=== PATIENT | male | born 1970 | race Caucasian/White ===

== ENCOUNTER 2019-12-13 08:02 | Emergency (ER) | payer BC ==
[~2019-12-13] VITALS: Ht 177.8 cm; Wt 99.8 kg
--- NOTE | 2019-12-13 08:40 | NUR ---
patient came in to the er c/o r knee pain x 1 week. on room air, breathing evenly and unlabored. connected to the monitor and pulse ox. kept comfortable, will continue to monitor accordingly.
--- NOTE | 2019-12-13 08:41 | NUR ---
[facility] at bedside for x-ray.
[2019-12-13 08:50] LABS: BASOPHILS # (AUTO) 0.1 /CMM (0.0-0.2); BASOPHILS % (AUTO) 0.7 % (0.0-2.0); EOSINOPHILS % (AUTO) 1.7 % (0.0-6.0); HEMATOCRIT 44 % (39-51); HEMOGLOBIN 14.7 g/dL (13.5-17.5); LYMPHOCYTES # (AUTO) 1.5 /CMM (0.8-4.8); LYMPHOCYTES % (AUTO) 10.1 % (20.0-44.0); MEAN CORPUSCULAR HGB CONC 34 g/dl (31.0-36.0); MEAN CORPUSCULAR VOLUME 90 fL (80-96); MONOCYTES # (AUTO) 1.1 /CMM (0.1-1.30); MONOCYTES % (AUTO) 7.2 % (2.0-12.0); NEUTROPHILS # (AUTO) 12.3 /CMM (1.8-8.9); NEUTROPHILS % (AUTO) 80.3 % (43.0-81.0); PLATELET COUNT (AUTO) 385 /CMM (150-450); RED BLOOD CELL COUNT(AUTO) 4.82 MIL/uL (4.5-6.0); WHITE BLOOD COUNT (AUTO) 15.3 K/uL (4.3-11.0)
[2019-12-13 09:00] LABS: CALCIUM, SERUM 9.3 mg/dL (8.5-10.1); POTASSIUM 3.9 mmol/L (3.5-5.1)
[2019-12-13] MEDS ORDERED: LIDOCAINE HCL/MPF 1% 30 ML VIAL IJ ONE (09:22)
--- NOTE | 2019-12-13 10:06 | NUR ---
CALLED [facility] FOR OTHRO CONSULT.
[2019-12-13] MEDS ORDERED: OLME20TA13 PO (10:12)
[2019-12-13] MEDS ORDERED: VENL37.55 PO (10:12)
--- NOTE | 2019-12-13 10:21 | NUR ---
CALLED [facility] SECOND TIME FOR CONSULT.
--- NOTE | 2019-12-13 10:50 | NUR ---
CALLED [facility] A THIRD TIME FOR CONSULT.
[2019-12-13] MEDS ORDERED: KETOROLAC TROMETHAMINE INJ 30 MG/ML VIAL IV ONE (11:00)
[2019-12-13] MEDS ORDERED: HYDROCODONE/APAP 10/325MG 1 EA TABLET PO ONE (11:00)
[2019-12-13] MEDS ORDERED: KETOROLAC TROMETHAMINE INJ 30 MG/ML VIAL ONE (11:09)
[2019-12-13] MEDS ORDERED: HYDROCODONE/APAP 10/325MG 1 EA TABLET ONE (11:09)
--- NOTE | 2019-12-13 11:20 | NUR ---
CALLED [facility] 4TH TIME FOR ORTHO CONSULT. BOTH PA AND DOC IN SURGERY.
[2019-12-13 12:13] VITALS: BP 130/71
--- NOTE | 2019-12-13 12:13 | NUR ---
Patient discharged to home in stable condition. Written and verbal after care instructions given. Patient verbalizes understanding of instruction.
== END 2019-12-13 12:13 | disposition home or self-care (01) ==
LOC: ER 08:07 → EDBD 08:07 → ER 12:13
DX: M25.561 Pain in right knee (principal); D72.829 Elevated white blood cell count, unspecified; I10 Essential (primary) hypertension; M10.9 Gout, unspecified; Z79.899 Other long term (current) drug therapy
CPT/HCPCS: 20610; 36415; 73564; 80048; 85025; 85610; 85652; 85730; 96372; 99284; J1885; J3490

== ENCOUNTER 2020-03-23 20:45 | Emergency (ER) | payer BC ==
[~2020-03-23] VITALS: Ht 177.8 cm; Wt 99.8 kg
[~2020-03-23 20:45] MED LIST: OLME20TA13 PO; VENL37.55 PO
[2020-03-23] MEDS ORDERED: HYDROCODONE/APAP 5/325MG 1 EACH TABLET PO ONE (21:30)
[2020-03-23] MEDS ORDERED: HYDROCODONE/APAP 5/325MG 1 EACH TABLET ONE (21:36)
--- NOTE | 2020-03-23 21:45 | NUR ---
PATIENT C/O LEFT KNEE PAIN FOR 3 DAYS. PATIENT STATES THAT HE ATE PEANUT BUTTER AND IT FLARES UP HIS GOUTTY ARTHRITIS. AAOX4. NO SOB. BREATHING EVENLY AND UNLABORED ON ROOM AIR.
[2020-03-23] MEDS ORDERED: KETOROLAC TROMETHAMINE INJ 30 MG/ML VIAL ONE (22:39)
[2020-03-23] MEDS ORDERED: predniSONE 20 MG TABLET ONE (22:40)
--- NOTE | 2020-03-23 22:46 | NUR ---
Patient discharged to home in stable condition. Written and verbal after care instructions given. Patient verbalizes understanding of instruction.
[2020-03-23 22:47] VITALS: BP 132/78
[2020-03-23] MEDS ORDERED: KETOROLAC TROMETHAMINE INJ 60 MG/2 ML VIAL IM ONE (23:00)
[2020-03-23] MEDS ORDERED: predniSONE 20 MG TABLET PO ONE (23:00)
== END 2020-03-23 22:59 | disposition home or self-care (01) ==
LOC: ER 20:45
DX: M10.062 Idiopathic gout, left knee (principal); I10 Essential (primary) hypertension; Z79.899 Other long term (current) drug therapy
CPT/HCPCS: 93971; 96372; 99284; J1885; J7512

== ENCOUNTER 2020-06-02 03:07 | Emergency (ER) | payer BC ==
[~2020-06-02] VITALS: Ht 177.8 cm; Wt 91.6 kg
[2020-06-02 03:39] LABS: APPEARANCE,URINE CLEAR (CLEAR); BILIRUBIN,URINE NEGATIVE (NEGATIVE); BLOOD, URINE SMALL Ery/uL (NEGATIVE); COLOR,URINE YELLOW (YELLOW); KETONES,URINE NEGATIVE (NEGATIVE); LEUKOCYTE ESTERASE ,URINE NEGATIVE (NEGATIVE); NITRITE, URINE NEGATIVE (NEGATIVE); PROTEIN,URINE NEGATIVE (NEGATIVE); UGLUCOSE NEGATIVE (NEGATIVE); UROBILINOGEN,URINE 0.2 EU/dL (0.2)
--- NOTE | 2020-06-02 03:40 | NUR ---
PT AAOX4. BIBSELF C/O OF BURNING, FREQUENCY UPON URINATION, AND JOCK ITCH FOR THE PAST 2WEEKS. WAS SEEN BY HIS PMD. AT BEDSIDE FOR EVAL. AWAITING ORDERS.
--- NOTE | 2020-06-02 03:41 | NUR ---
URINE SENT TO LAB
[2020-06-02 03:53] LABS: BASOPHILS # (AUTO) 0.1 /CMM (0.0-0.2); BASOPHILS % (AUTO) 0.9 % (0.0-2.0); EOSINOPHILS % (AUTO) 2.9 % (0.0-6.0); HEMATOCRIT 44 % (39-51); HEMOGLOBIN 14.7 g/dL (13.5-17.5); LYMPHOCYTES # (AUTO) 1.5 /CMM (0.8-4.8); LYMPHOCYTES % (AUTO) 21.9 % (20.0-44.0); MEAN CORPUSCULAR HGB CONC 33 g/dl (31.0-36.0); MEAN CORPUSCULAR VOLUME 85 fL (80-96); MONOCYTES # (AUTO) 0.5 /CMM (0.1-1.30); MONOCYTES % (AUTO) 7.6 % (2.0-12.0); NEUTROPHILS # (AUTO) 4.7 /CMM (1.8-8.9); NEUTROPHILS % (AUTO) 66.7 % (43.0-81.0); PLATELET COUNT (AUTO) 284 /CMM (150-450); RED BLOOD CELL COUNT(AUTO) 5.18 MIL/uL (4.5-6.0)
[2020-06-02] MEDS ORDERED: HYDROCODONE/APAP 5/325MG 1 EACH TABLET PO ONE (04:00)
[2020-06-02] MEDS ORDERED: HYDROCODONE/APAP 5/325MG 1 EACH TABLET ONE (04:13)
[2020-06-02 04:25] LABS: ALBUMIN 3.7 g/dL (3.4-5.0); BILIRUBIN,DIRECT 0.1 mg/dL (0.0-0.2); BILIRUBIN,TOTAL 0.6 mg/dL (0.2-1.0); CREATININE 0.9 mg/dL (0.6-1.3); TOTAL PROTEIN, SERUM 7.4 g/dL (6.4-8.2)
[2020-06-02 04:26] LABS: POTASSIUM 3.4 mmol/L (3.5-5.1)
--- NOTE | 2020-06-02 05:05 | NUR ---
Patient discharged to home in stable condition. Written and verbal after care instructions given. Patient verbalizes understanding of instruction and RX. Pt ambulated with steady gait. vss.
[2020-06-02 05:09] VITALS: BP 142/89
== END 2020-06-02 05:09 | disposition home or self-care (01) ==
LOC: ER 03:12
DX: N20.0 Calculus of kidney (principal); B35.6 Tinea cruris; I10 Essential (primary) hypertension; M10.9 Gout, unspecified; Z79.899 Other long term (current) drug therapy
CPT/HCPCS: 36415; 72192-TC; 80048-TC; 80076-TC; 81000-TC; 83690-TC; 85025-TC

== ENCOUNTER 2020-06-03 11:53 | Emergency (ER) | payer BC ==
[~2020-06-03] VITALS: Ht 177.8 cm; Wt 91.6 kg
--- NOTE | 2020-06-03 11:55 | NUR ---
CAME IN FOR L FLANK PAIN x 3WEEKS, WORSE TODAY, WAS SEEN HERE YESTERDAY FOR SAME REASON. 08/19 PS, ALSO C/O NAUSEA AND VOMITING. TO ER BED 9, HOOKED TO MONITOR, CHANGED TO HOSP GOWN, WARM BLANKET PROVIDED, PATIENT AAO x 4, BREATHING EVENA AND UNLABORED. DR VIZCARRA AT BEDSIDE
[2020-06-03] MEDS ORDERED: ONDANSETRON HCL/PF 4 MG/2 ML VIAL ONE (12:15)
[2020-06-03] MEDS ORDERED: KETOROLAC TROMETHAMINE 15 MG/ML VIAL ONE (12:15)
[2020-06-03 12:17] LABS: APPEARANCE,URINE Clear (CLEAR); BILIRUBIN,URINE SMALL (NEGATIVE); BLOOD, URINE Moderate Ery/uL (NEGATIVE); COLOR,URINE Yellow (YELLOW); KETONES,URINE 40 (NEGATIVE); LEUKOCYTE ESTERASE ,URINE Negative (NEGATIVE); NITRITE, URINE Negative (NEGATIVE); PH,URINE 5.5 (5.0-8.0); PROTEIN,URINE 30 mg/dl (NEGATIVE); UGLUCOSE Negative (NEGATIVE); UROBILINOGEN,URINE 0.2 EU/dL (0.2)
[2020-06-03 12:18] LABS: BASOPHILS % (AUTO) 0.4 % (0.0-2.0); EOSINOPHILS % (AUTO) 0.3 % (0.0-6.0); HEMATOCRIT 47 % (39-51); HEMOGLOBIN 15.9 g/dL (13.5-17.5); LYMPHOCYTES # (AUTO) 0.9 /CMM (0.8-4.8); LYMPHOCYTES % (AUTO) 8.3 % (20.0-44.0); MEAN CORPUSCULAR HGB CONC 34 g/dl (31.0-36.0); MEAN CORPUSCULAR VOLUME 86 fL (80-96); MONOCYTES # (AUTO) 0.6 /CMM (0.1-1.30); MONOCYTES % (AUTO) 6.1 % (2.0-12.0); NEUTROPHILS % (AUTO) 84.9 % (43.0-81.0); PLATELET COUNT (AUTO) 309 /CMM (150-450); RED BLOOD CELL COUNT(AUTO) 5.46 MIL/uL (4.5-6.0); WHITE BLOOD COUNT (AUTO) 10.6 K/uL (4.3-11.0)
[2020-06-03 12:26] LABS: BACTERIA,URINE Moderate /HPF (None Seen); SQUAMOUS EPITHELIAL CELL,UR Few /HPF (None Seen); WBC,URINE 0-2 /HPF (0-3)
[2020-06-03] MEDS ORDERED: KETOROLAC TROMETHAMINE INJ 30 MG/ML VIAL IV ONE (12:30)
[2020-06-03] MEDS ORDERED: ONDANSETRON HCL/PF 4 MG/2 ML VIAL IVP ONE (12:30)
[2020-06-03] MEDS ORDERED: IV NS 0.9% 500 ML BAG IV ONE (12:30)
[2020-06-03 12:51] LABS: CALCIUM, SERUM 9.5 mg/dL (8.5-10.1); CREATININE 1.5 mg/dL (0.6-1.3); POTASSIUM 3.4 mmol/L (3.5-5.1)
--- NOTE | 2020-06-03 13:31 | NUR ---
IV removed. Catheter intact and site benign. Pressure and 4x4 applied to site. No bleeding noted.Patient discharged to home in stable condition. Written and verbal after care instructions given. Patient verbalizes understanding of instruction.
[2020-06-03 13:32] VITALS: BP 149/96
== END 2020-06-03 13:34 | disposition home or self-care (01) ==
LOC: ER 11:53
DX: N20.0 Calculus of kidney (principal); I10 Essential (primary) hypertension; Z79.899 Other long term (current) drug therapy
CPT/HCPCS: 36415; 80048; 81001; 85025; 87086; 96374; 96375; 99284; J1885; J2405; 81000-TC